=== PATIENT | female | born 1960 | race African-American/Black ===

== ENCOUNTER 2017-07-06 20:45 | Emergency (ER) | payer OTHER ==
[~2017-07-06] VITALS: Ht 177.8 cm; Wt 161.0 kg
[~2017-07-06 20:45] MED LIST: B12INJ; COUMADIN 5 MG TA5 M1 PO; COUMADIN7.5 MG PO; COZAAR 25 MG TA25 M1 PO; ECOTRIN325 MG; ENOXAPARIN100 MG/11 SUBQ; ENOXAPARIN150 MG/11 SUBQ; ENOXAPARIN60 MG/0.1 SUBQ; HYDROCHLOROTH12.5 M1; HYDROXYCHLOROQ200 M1; OXYCODONE HCL 55 MG PO; PAXIL10 MG; PERCOCET; TENORMIN25 MG PO; TRAMADOL 50 MG50 MG; TYLENOL325 MG PO; VITAMIN D 5050000 I1
[2017-07-06 22:15] LABS: ABSOLUTE NEUTROPHILS 5.9 thou/uL (1.4-8.2); EOSINOPHILS 1.2 % (0.0-3.0); LYMPHOCYTES 24.9 % (24.0-44.0); MCH 25.7 pg (26.0-34.0); MCHC 32.6 g/dL (28.0-37.0); MCV 78.9 fL (80.0-100.0); MONOCYTES 7.1 % (1.0-8.0); PLATELET COUNT 238 thou/uL (150-400); POLYS 65.8 % (36.0-66.0); RBC 4.68 mil/uL (4.20-5.00); RDW 14.3 % (10.5-14.5); WBC 8.9 thou/uL (4.0-11.0)
[2017-07-06 22:18] LABS: MANUAL DIFF NO
[2017-07-06 22:22] LABS: CALCIUM 9.3 mg/dL (8.5-10.1); CREATININE 0.6 mg/dL (0.6-1.0)
[2017-07-06 22:30] LABS: APTT 22.6 Seconds (24.5-32.8); INR 1.3; PROTIME 13.2 Seconds (9.3-11.4)
== END 2017-07-06 23:00 | disposition home or self-care (01) ==
LOC: ER 20:45
PROVIDERS: Nurse Practitioner
DX: M79.631 Pain in right forearm (principal); M54.9 Dorsalgia, unspecified; M25.511 Pain in right shoulder; I10 Essential (primary) hypertension; E66.9 Obesity, unspecified; G89.29 Other chronic pain; Z86.711 Personal history of pulmonary embolism; Z86.718 Personal history of other venous thrombosis and embolism; Z91.041 Radiographic dye allergy status

== ENCOUNTER → 2018-08-21 | Outpatient (CLI) | payer OTHER | LOC: RAD 08-18 02:26 | DX: Z12.31 Encounter for screening mammogram for malignant neoplasm of breast (principal) ==